=== PATIENT | male | born 1960 | race Caucasian/White ===

== ENCOUNTER 2017-10-08 16:57 | Inpatient (IN) | payer MEDICAID, SELFPAY ==
[2017-10-08] VITALS (12 sets, daily range): BP systolic 101–133; BP diastolic 70–94; PULSE 54–69; RESP 13–20; TEMP 36.4–36.8; O2SAT 94–100; BMI 27.1; BMI 27.6; BMI 28.4
--- NOTE | 2017-10-08 17:06 | RAD_ITS ---
STUDY: X-RAY CHEST REASON FOR EXAM: Male, 57 years old. Myocardial infarction. TECHNIQUE: Single AP portable view of the chest. COMPARISON: 04/23/2016. FINDINGS: Normal lung volumes. Mild infiltrate in the right lung base. No effusions. Normal size heart. Normal mediastinum and yumiko. Normal visualized pulmonary arteries. Normal visualized aortic arch and descending thoracic aorta. Normal visualized thoracic spine. Normal visualized ribs, clavicles, and shoulders. There is no demonstrated abnormality of the visualized soft tissue structures of the upper abdomen. RAD/Chest 1 View (Portable) IMPRESSION: Mild infiltrate in the right lung base. Electronically Signed: Sidney Ray MD at 18:17 EDT , Service support ,
--- NOTE | 2017-10-08 17:06 | EKG12_ITS ---
Test Reason : CP Blood Pressure : / mmHG Vent. Rate : 056 BPM Atrial Rate : 056 BPM P-R Int : 168 ms QRS Dur : 112 ms QT Int : 442 ms P-R-T Axes : 055 035 014 degrees QTc Int : 426 ms Sinus bradycardia with sinus arrhythmia Inferior infarct , age undetermined Abnormal ECG Confirmed by CHANA LACKEY, RICHIE ([id number]), scientific editor TONIE CUADRA ([id number]) on 10/11/2017 3:47:46 PM Referred By: Keshav Membreno Confirmed By:RICHIE ZAYAS MD
[2017-10-08] MEDS: Heparin Injection (Vial) 5,000 UNIT/ML VIAL 4000 UNIT IV (17:09)
[2017-10-08] MEDS: Aspirin 81 MG TAB.CHEW 324 MG PO (17:10)
[2017-10-08] MEDS: 0.9% Normal Saline 1,000 ML 250 ML IV (17:10)
--- NOTE | 2017-10-08 17:11 | ED.VISSUMM ---
- ER Visit Summary Date of Service: 10/08/17 Chief Complaint: Chest pain History of Present Illness: The patient is a 57 M [place]z to the emergency department with sudden onset chest pain. Patient is a history of coronary vascular disease. He had 3 stents placed just about 2 years ago. He states that he is no longer on Plavix. He has been in his normal state of health. Patient states he was actually waterskiing today. When he finished, he had sudden onset chest tightness. He felt as if he could not breathe. He got very diaphoretic and nauseated. He had pain radiating down his left arm. He states this feels exactly the same as when he had his prior [place]. He does follow with a county surveyor at [facility]. He states otherwise he has been in his normal state of health. His last heart catheterization was 2 years ago. The patient was actually on Effient. This was stopped 3 weeks ago so he could get a colonoscopy. He has not resumed it. Physical Examination: Vital signs reviewed General: Well-nourished, well-developed Head: Normocephalic, atraumatic Eyes: Pupils equal and reactive, extraocular muscles intact Neck, supple, no lymphadenopathy Heart: Regular rate and rhythm Respiratory: No distress, clear bilaterally Abdomen: Soft, nontender, nondistended, no peritoneal signs Back: Nontender Extremities: Nontender, no edema, no cords Skin: Normal color no rash Neuro: Alert and oriented, no focal or lateralizing deficits Test Results: [] Emergency Department Course and Treatment: EKG was obtained on patient arrival. The patient does appear to have about 1 mm of elevation in the inferior leads. He has old Q waves. There is some lateral depression. The patient states this feels exactly like when I had my other heart attack. Patient has allergy to Brilinta. He was given Plavix, heparin, and aspirin. I did discuss the patient with Dr. Danielle. The patient will be transferred immediately to the Patient Access Representative for intervention. Treatment Plan: [] Disposition: To Patient Access Representative Impression:. STEMI This note was generated with [employer] dictation software. It may contain incorrect words, spelling, and punctuation that were not noted in review of the chart prior to signing ED Disposition - Plan for ED Patient: Chief Complaint: Chest Pain Referrals: [facility] Doctor,Out of [Primary Care Provider] -
[2017-10-08 17:15] LABS: Absolute Lymphocyte Count 4.44 X10^3/ul (0.83-4.51); Basophil# 0.06 X10^3/uL; Basophil% 0.5 % (0-1); Eosinophils% 3.4 % (0-5); Hematocrit 41.1 % (40-54); Lymphocyte # 4.44 X10^3/ul (4.0); Lymphocyte % 37.9 % (19-41); Mean Corp Hgb Conc 34.1 g/gl (32-36); Mean Corpuscular Volume 93.8 fL (80-94); Mean Platelet Vol. 9.9 fl (6.2-12.0); Monocyte# 0.82 X10^3/uL; Neutrophil # 5.99 X10^3/uL (2.7-7.7); POSITIVE COUNT NO; POSITIVE DIFFERENTIAL NO; POSITIVE MORPHOLOGY NO; Platelet Count 342 K/mm3 (150-450); RBC Distribution Width CV 14.6 % (11.6-14.6); RBC Distribution Width SD 48.8 fl (35.1-43.9); Red Blood Count 4.38 M/mm3 (4.6-6.2); White Blood Count 11.7 K/mm3 (4.4-11.0)
[2017-10-08] MEDS: Morphine 4 MG/ML Syringe IV (17:20)
[2017-10-08] MEDS: Clopidogrel Bisulfate 300 MG Tablet PO (17:20)
[2017-10-08] MEDS: Ondansetron 4 MG/2 ML Vial IV (17:20)
[2017-10-08 17:24] LABS: Prothrombin Time (Protime)PT. 12.7 SECONDS (11.7-14.9)
[2017-10-08 17:25] LABS: Partial Thromboplast Time 32.6 Seconds (24.1-36.2)
[2017-10-08 17:31] LABS: Anion Gap 7 (5-15); BUN 23 mg/dL (7-18); BUN/Creat Ratio 15.9 RATIO (10-20); Chloride 107 mmol/L (98-107); Creatinine, Serum 1.45 mg/dL (0.70-1.30); EST Glomerular Filtration Rate 53 mL/min (>60); Est Glom Filt Rate - Afr Amer 64 mL/min (>60); Estimated Creatinine Clearance 60.95 ml/min; Glucose 181 mg/dL (74-106); Sodium Level 137 mmol/L (136-145)
[2017-10-08 18:51] LABS: ACT Activated Clotting Time 131 sec (74-137)
[2017-10-08 18:51] LABS: ACT Activated Clotting Time 252 sec (74-137)
[2017-10-08 18:51] LABS: ACT Activated Clotting Time 142 sec (74-137)
--- NOTE | 2017-10-08 18:55 | EKG12_ITS ---
Test Reason : STEMI Blood Pressure : / mmHG Vent. Rate : 063 BPM Atrial Rate : 063 BPM P-R Int : 172 ms QRS Dur : 108 ms QT Int : 418 ms P-R-T Axes : 058 037 009 degrees QTc Int : 427 ms Normal sinus rhythm Inferior infarct (cited on or before 23-APR-2016) Abnormal ECG When compared with ECG of 23-APR-2016 19:52, T wave inversion less evident in Inferior leads Confirmed by CHANA LACKEY, RICHIE ([id number]), editor managing newspaper TONIE CUADRA ([id number]) on 10/12/2017 10:43:31 AM Referred By: Keshav Membreno Confirmed By:RICHIE ZAYAS MD
--- NOTE | 2017-10-08 19:20 | NURSING ---
Pt arriving from builder's labourer to ICU. Pt appears without distress denies any chest pain discomfort stating I feel great. Right groin cath site free from complications, site soft to palpate, no bruising/ bleeding/ hematoma observed. Peripheral pulses present. Orientation to ICU provided.
[2017-10-08 20:08] LABS: Hematocrit 37.2 % (40-54); Hemoglobin 12.4 g/dl (13.0-16.5); Mean Corp Hgb Conc 33.3 g/gl (32-36); Mean Corpuscular Hgb 31.2 pg (27.0-32.0); Mean Corpuscular Volume 93.5 fL (80-94); Mean Platelet Vol. 9.6 fl (6.2-12.0); Platelet Count 278 K/mm3 (150-450); RBC Distribution Width CV 14.6 % (11.6-14.6); RBC Distribution Width SD 50.1 fl (35.1-43.9); Red Blood Count 3.98 M/mm3 (4.6-6.2); White Blood Count 12.3 K/mm3 (4.4-11.0)
[2017-10-08 20:13] LABS: Prothrombin Time (Protime)PT. 13.4 SECONDS (11.7-14.9)
[2017-10-08 20:14] LABS: Partial Thromboplast Time 45.7 Seconds (24.1-36.2)
[2017-10-08 20:21] LABS: Scan Indicated on CBC? Y/N NO
[2017-10-08 20:36] LABS: CPK Total, Creatine Kinase 179 U/L (39-308)
[2017-10-08 20:48] LABS: Anion Gap 6 (5-15); BUN 20 mg/dL (7-18); BUN/Creat Ratio 17.4 RATIO (10-20); Calcium,Total 8.1 mg/dL (8.5-10.1); Chloride 107 mmol/L (98-107); Creatinine, Serum 1.15 mg/dL (0.70-1.30); EST Glomerular Filtration Rate 69 mL/min (>60); Est Glom Filt Rate - Afr Amer 84 mL/min (>60); Estimated Creatinine Clearance 74.57 ml/min; Glucose 97 mg/dL (74-106); Sodium Level 138 mmol/L (136-145)
--- NOTE | 2017-10-08 20:54 | HP.PCM_ITS ---
Problem List (1) STEMI (ST elevation myocardial infarction) Status: Acute Qualifiers: Involved coronary artery: right coronary artery Qualified Code(s): I21.11 - ST elevation (STEMI) myocardial infarction involving right coronary artery (2) CAD (coronary artery disease) Status: Chronic Qualifiers: Coronary Disease-Associated Artery/Lesion type: [place] artery [place] vs. transplanted heart: [place] heart Associated angina: with unstable angina Qualified Code(s): I25.110 - Atherosclerotic heart disease of [place] coronary artery with unstable angina pectoris (3) HLD (hyperlipidemia) Status: Chronic Qualifiers: Hyperlipidemia type: unspecified Qualified Code(s): E78.5 - Hyperlipidemia , unspecified (4) S/P PTCA (percutaneous transluminal coronary angioplasty) Status: Chronic (5) STEMI (ST elevation myocardial infarction) Status: Acute History of Present Illness Date of Admission: 10/08/17 Chief Complaint: STEMI The patient is a 57 year old male w/ h/o CAD, [place], status post RCA PCI/stent, hyperlipidemia, admitted for STEMI s/o cath. Pt was waterskiing when he developed sudden onset severe chest pain. It was noted to be STEMI and he was immediately taken to cath labs. He had in stent thrombosis of the RCA and he underwent PTCA. His chest pain resolved by the time he was seen by me in the ICU after cath. He has no other complaint. Past Medical History Past Medical History (Chronic Problems): Chronic Problems CAD (coronary artery disease) (Chronic) S/P PTCA (percutaneous transluminal coronary angioplasty) (Chronic) HLD (hyperlipidemia) (Chronic) Allergies ticagrelor [From Brilinta] Allergy (Verified 10/08/17 17:26) Anaphylaxis Home Medications: Ambulatory Orders Medication Instructions Recorded Lisinopril [Zestril] 5 mg PO DAILY 12/26/15 Aspirin [Aspirin, Baby] 81 mg PO DAILY@0800 04/23/16 Atorvastatin Calcium [Lipitor] 40 mg PO QHS 04/23/16 Prasugrel Hydrochloride [Effient] 5 mg PO DAILY 04/23/16 Amlodipine 2.5 mg 10/08/17 Psychiatric History: No pertinent psych hx Lives: Spouse/ Significant Other Smoking Status: Never smoker Alcohol: None Drugs: None - *Family History Maternal History Items: No pertinent history Review of Systems Constitutional: Denies: Chills, Fever, Weight Change HEENT: Denies: Head Aches, Sinus Congestion, Sinus Drainage Cardiovascular: Denies: Chest Pain, Palpitations Respiratory: Denies: Cough, Shortness of breath at rest, Sputum production Gastrointestinal: Denies: Abdominal Pain, Nausea, Vomiting Genitourinary: Denies: Dysuria Musculoskeletal: Denies: Joint Pain, Joint Tenderness Skin: Denies: Rash, Wounds Neurological: Denies: Numbness, Tingling, Focal weakness Psychiatric: Denies: Anxiety, Depression, Homicidal Ideations, Suicidal Ideations Hematologic/ Lymphatic: Denies: Easy Bruising, Easy Bleeding VTE Information - Inpt Only VTE Present on Admission: No VTE Mechan Device Prophylaxis: SCD's VTE Pharm Prophylaxis ordered?: Yes Patient Problems: Active and Suspected Problems STEMI (ST elevation myocardial infarction) (Acute) STEMI (ST elevation myocardial infarction) (Acute) - Physical Exam General: Alert, Oriented x3, Cooperative HEENT: Atraumatic, PERRLA, EOMI, Normocephalic Neck: Supple, No JVD, Negative Carotid Bruits Lungs: Clear to auscultation, Normal air movement Cardiovascular: Regular rate, No murmurs Abdomen: Bowel Sounds Present, Soft, Non Tender Extremities: No edema, Capillary Refill Less than 3 Seconds Skin: No rashes, No breakdown Musculoskeletal: No Tenderness to Palpation of Joints or Extremities Neurological: Cranial nerves II-XII grossly intact Psych/Mental Status: Normal Affect, Appropriate Vital Signs Temp Pulse Resp BP Pulse Ox 97.5 F L 67 20 H 133/87 H 100 10/08/17 16:59 10/08/17 19:24 10/08/17 17:23 10/08/17 17:23 10/08/17 17:23 Weight: 92.4 kg Body Mass Index (BMI) 28.4 Laboratory Tests Past 24 Hrs 10/08/17 10/08/17 10/08/17 17:58 18:30 18:37 WBC RBC Hgb Hct MCV MCH MCHC RDW RDW Differential Plt Count MPV PT INR APTT Activated Clotting Time 252 H 131 142 H Sodium Potassium Chloride Carbon Dioxide Anion Gap BUN Creatinine Estim Creat Clear Calc Est GFR (MDRD) Af Amer Est GFR (MDRD) Non-Af BUN/Creatinine Ratio Glucose Calcium Total Creatine Kinase MRSA (PCR) 10/08/17 10/08/17 10/08/17 19:35 19:35 19:35 WBC 12.3 H RBC 3.98 L Hgb 12.4 L Hct 37.2 L MCV 93.5 MCH 31.2 MCHC 33.3 RDW 14.6 RDW Differential 50.1 H Plt Count 278 MPV 9.6 PT 13.4 INR 1.0 APTT 45.7 H Activated Clotting Time Sodium 138 Potassium 4.0 Chloride 107 Carbon Dioxide 25.0 Anion Gap 6 BUN 20 H Creatinine 1.15 Estim Creat Clear Calc 74.57 Est GFR (MDRD) Af Amer 84 Est GFR (MDRD) Non-Af 69 BUN/Creatinine Ratio 17.4 Glucose 97 Calcium 8.1 L Total Creatine Kinase MRSA (PCR) 10/08/17 10/08/17 19:35 19:40 WBC RBC Hgb Hct MCV MCH MCHC RDW RDW Differential Plt Count MPV PT INR APTT Activated Clotting Time Sodium Potassium Chloride Carbon Dioxide Anion Gap BUN Creatinine Estim Creat Clear Calc Est GFR (MDRD) Af Amer Est GFR (MDRD) Non-Af BUN/Creatinine Ratio Glucose Calcium Total Creatine Kinase 179 MRSA (PCR) Pending Assessment/Plan All Active Problems STEMI (ST elevation myocardial infarction) (Acute) STEMI (ST elevation myocardial infarction) (Acute) 57 year old male w/ h/o CAD, [place], status post RCA PCI/stent, hyperlipidemia, admitted for STEMI s/o cath. 1) Acute inferior STEMI: PTCA to in stent thrombosis of RCA. Cath went without complication. Spoke to cards. Resume integrilin, ASA, atorvastatin, lisinopril and metoprolol. 2) CAD: Resume meds. 3) HTN: SBP 120s. C/w meds. Monitor.
[2017-10-08 21:43] LABS: M R Staph aureus DNA By PCR Negative (Negative); Probe Check PASS; Specimen Processing Control PASS
[2017-10-08] MEDS: Zolpidem Tartrate 5 MG Tablet 10 MG PO (21:58)
[2017-10-08] MEDS: Atorvastatin Calcium 80 MG Tablet PO (21:58)
--- NOTE | 2017-10-08 22:30 | PCM.CONS.C ---
Problem List (1) STEMI (ST elevation myocardial infarction) Status: Acute Qualifiers: Involved coronary artery: right coronary artery Qualified Code(s): I21.11 - ST elevation (STEMI) myocardial infarction involving right coronary artery (2) CAD (coronary artery disease) Status: Chronic Qualifiers: Coronary Disease-Associated Artery/Lesion type: [place] artery [place] vs. transplanted heart: [place] heart Associated angina: with unstable angina Qualified Code(s): I25.110 - Atherosclerotic heart disease of [place] coronary artery with unstable angina pectoris (3) S/P PTCA (percutaneous transluminal coronary angioplasty) Status: Chronic (4) HLD (hyperlipidemia) Status: Chronic Qualifiers: Hyperlipidemia type: unspecified Qualified Code(s): E78.5 - Hyperlipidemia, unspecified Reason for Consult Date of Consultation: 10/08/17 History of Present Illness: The patient is a 57 year old white male with a past medical history of CAD, [place], status post RCA PCI/stent, hyperlipidemia, who presents for evaluation of symptoms concerning for unstable angina pectoris and subsequent findings of an acute inferior ST segment elevation MT now status post RCA PTCA (no stent). The patient states his original amounts occurred sometime ago when he was working in the [employer]. He was evaluated at 2 different hospitals and initially told that he had had an MT, had collateral flow, and did not require PCI. He notes after leaving the hospital he drove approximately 6 hours, was spending the night in a hotel room next to another hospital, had recurrent symptoms, was reassessed, and subsequently received PTCA/stent. He notes after returning to [place], and establishing care with the cardiovascular group in [place], [place], he had recurrent symptoms. He was once again evaluated and found to have issues with 1 of his stents and subsequently required repeat PTCA/stent. He states he participated in cardiac rehabilitation. He then exercised at an exercise facility for approximately a year. He states due to back related issues he has been unable to do so for the last few months. He had been taking medication. He states originally he was on Brilinta but could not tolerate it because skipped beats. He states he was also on metoprolol/Lopressor. He does not recall the dose. However he states he did not tolerated because he skipped beats. He notes he had been doing reasonably well until today. Today he was waterskiing. He had chest discomfort. He did not necessarily complain of acute dyspnea, nausea, emesis, or diaphoresis. However based on his concerns he presented to [facility] for further evaluation. On evaluation he was noted on ECG to have findings of sinus rhythm with an inferior MT pattern of indeterminate age with concerns of possible acute ST segment elevation-minimal. He was subsequently evaluated by Dr. Danielle of [facility]. He was taken to the cardiac catheterization laboratory for concerns of an acute inferior ST segment elevation MT. He was found to have an RCA that had been previously stented and was thrombosed. He subsequently underwent PTCA. He had good angiographic result and latter-day of flow through the RCA system. He was then placed in the ICU for further evaluation and care. At the present time he states he feels back to his normal self. He denies any ongoing chest discomfort or difficulty breathing. He has had no other nausea, emesis, or diaphoresis. There is been no report of loss of consciousness. He notes otherwise he has been relatively active without any other obvious symptoms or limits. [] Past Medical History Allergies/Adverse Reactions: Allergies metoprolol Allergy (Verified 10/08/17 21:44) Other ticagrelor [From Brilinta] Allergy (Verified 10/08/17 17:26) Anaphylaxis Home Medications: Ambulatory Orders Medication Instructions Recorded Lisinopril [Zestril] 5 mg PO DAILY 12/26/15 Aspirin [Aspirin, Baby] 81 mg PO DAILY@0800 04/23/16 Atorvastatin Calcium [Lipitor] 40 mg PO QHS 04/23/16 Prasugrel Hydrochloride [Effient] 5 mg PO DAILY 04/23/16 Amlodipine 2.5 mg 10/08/17 Past Medical History (Chronic Problems): Chronic Problems CAD (coronary artery disease) (Chronic) S/P PTCA (percutaneous transluminal coronary angioplasty) (Chronic) HLD (hyperlipidemia) (Chronic) Surgical History: angioplasty Smoking Status: Never smoker Alcohol: None Drugs: None Review of Systems - Review of Systems General: Denies: Fever, Night Sweats, Fatigue Cardiovascular: Reports: Chest Discomfort, Chest Discomfort at Rest, Chest Discomfort with Exertion. Denies: Shortness of Breath, Orthopnea, PND, Peripheral Edema, Palpitations, Lightheadedness, Dizziness, Near Syncope, Syncope Respiratory: Denies: Cough, Sputum Production, Hemoptysis Gastrointestinal: Denies: Hematemesis, Hematochezia, Melena Genitourinary: Denies: Dysuria, Hematuria Skin: Denies: Rash Subjectve: This is a 57-year-old white male who appears to be resting comfortably at the moment in no acute distress. Objective: Vital Signs Temp Pulse Resp BP Pulse Ox 97.5 F L 67 20 H 133/87 H 100 10/08/17 16:59 10/08/17 19:24 10/08/17 17:23 10/08/17 17:23 10/08/17 17:23 Weight: 203 lb 11.314 oz Body Mass Index (BMI) 28.4 General: Awake, Alert, Oriented x 3, Cooperative, No Acute Distress HEENT: Atraumatic, Normocephalic, PERRL, EOMI, Sclera Non Icteric Oral: Moist Mucosa Neck: Supple, Good ROM, No JVD Lungs: Clear to auscultation Cardiovascular: Regular Rhythm, Normal S1, Normal S2, Positive S4 Vascular: No Carotid Bruits, Normal Femoral Pulses Abdomen: Bowel Sounds Present, Soft, Non Tender Extremities: No Cyanosis, No Clubbing, No edema Neurological: No Focal Motor or Sensory Deficit Psych/Mental Status: Appropriate, Normal Affect 10/08/17 19:35: PT 13.4, INR 1.0, APTT 45.7 H 10/08/17 19:35: Sodium 138, Potassium 4.0, Chloride 107, Carbon Dioxide 25.0, Anion Gap 6, BUN 20 H, Creatinine 1.15, Est GFR (MDRD) Af Amer 84, Est GFR (MDRD) Non-Af 69, BUN/Creatinine Ratio 17.4, Glucose 97, Calcium 8.1 L 10/08/17 19:35: WBC 12.3 H, RBC 3.98 L, Hgb 12.4 L, Hct 37.2 L, MCV 93.5, MCH 31.2, MCHC 33.3, RDW 14.6, RDW Differential 50.1 H, Plt Count 278, MPV 9.6 Rhythm: Sinus rhythm EKG: As noted above Cardiac Cath: Please see official report PCI: Please see official report CXR: Preliminary evaluation: question of a right sided infiltrate: Please see official report Assessment/Plan 1. Acute inferior ST segment elevation MT The patient presents with signs and symptoms and objective findings compatible with an acute inferior ST segment elevation MT. He has subsequently undergone emergent/urgent diagnostic cardiac catheterization demonstrating RCA PTCA/stent occlusion/thrombosis and is now status post recurrent RCA PTCA-no stent. He appears to be resting comfortably at the moment in the ICU. At the present time he will continue to be monitored. His laboratory studies and ECGs are being followed. He can have a follow-up echocardiogram to assess his left ventricular wall motion and systolic function. He will continue medical therapy. This will include aspirin and antiplatelet therapy. He has been placed on clopidogrel/Plavix. Nitrates can be used cautiously as needed. It would not be unreasonable to reattempt beta-shannon therapy and a low dose to assist with his cardiovascular care. He is on an ASHANTI inhibitor. He is on a lipid-lowering agent. He will need to follow-up with his primary instructional technology coordinator in [place], [place]. He should be considered for recurrent cardiac rehabilitation. 2. CAD status post RCA PTCA/stent He does have a history of previous coronary artery disease and RCA PTCA/stent as noted above. Again he will need to continue risk factor modification and medical management. He will need to continue to follow with his primary instructional technology coordinator and be considered for recurrent outpatient cardiac rehabilitation. 3. Hyperlipidemia He will need to continue aggressive risk factor modification and medical management. Comment: The above was discussed and reviewed with the patient. This note was generated with [employer] ([employer]ation software. It may contain incorrect words, spelling, and punctuation that were not noted in checking the note before signing.
--- NOTE | 2017-10-08 22:41 | CON.PCM_ITS ---
Problem List (1) STEMI (ST elevation myocardial infarction) Status: Acute Qualifiers: Involved coronary artery: right coronary artery Qualified Code(s): I21.11 - ST elevation (STEMI) myocardial infarction involving right coronary artery (2) CAD (coronary artery disease) Status: Chronic Qualifiers: Coronary Disease-Associated Artery/Lesion type: [place] artery [place] vs. transplanted heart: [place] heart Associated angina: with unstable angina Qualified Code(s): I25.110 - Atherosclerotic heart disease of [place] coronary artery with unstable angina pectoris (3) S/P PTCA (percutaneous transluminal coronary angioplasty) Status: Chronic (4) HLD (hyperlipidemia) Status: Chronic Qualifiers: Hyperlipidemia type: unspecified Qualified Code(s): E78.5 - Hyperlipidemia , unspecified Reason for Consult Date of Consultation: 10/08/17 History of Present Illness: The patient is a 57 year old white male with a past medical history of CAD, TN, status post RCA PCI/stent, hyperlipidemia, who presents for evaluation of symptoms concerning for unstable angina pectoris and subsequent findings of an acute inferior ST segment elevation TN now status post RCA PTCA (no stent). The patient states his original amounts occurred sometime ago when he was working in the [employer]. He was evaluated at 2 different hospitals and initially told that he had had an TN, had collateral flow, and did not require PCI. He notes after leaving the hospital he drove approximately 6 hours , was spending the night in a hotel room next to another hospital, had recurrent symptoms, was reassessed, and subsequently received PTCA/stent. He notes after returning to [place], and establishing care with the cardiovascular group in [place], [place], he had recurrent symptoms. He was once again evaluated and found to have issues with 1 of his stents and subsequently required repeat PTCA/stent. He states he participated in cardiac rehabilitation. He then exercised at an exercise facility for approximately a year. He states due to back related issues he has been unable to do so for the last few months. He had been taking medication. He states originally he was on Brilinta but could not tolerate it because skipped beats. He states he was also on metoprolol/ Lopressor. He does not recall the dose. However he states he did not tolerated because he skipped beats. He notes he had been doing reasonably well until today. Today he was waterskiing. He had chest discomfort. He did not necessarily complain of acute dyspnea, nausea, emesis, or diaphoresis. However based on his concerns he presented to [facility] for [facility] evaluation. On evaluation he was noted on ECG to have findings of sinus rhythm with an inferior TN pattern of indeterminate age with concerns of possible acute ST segment elevation-minimal. He was subsequently evaluated by Dr. Danielle of [facility]. He was taken to the cardiac catheterization laboratory for concerns of an acute inferior ST segment elevation TN. He was found to have an RCA that had been previously stented and was thrombosed. He subsequently underwent PTCA. He had good angiographic result and orthodoxy of flow through the RCA system. He was then placed in the ICU for further evaluation and care. At the present time he states he feels back to his normal self. He denies any ongoing chest discomfort or difficulty breathing. He has had no other nausea, emesis, or diaphoresis. There is been no report of loss of consciousness. He notes otherwise he has been relatively active without any other obvious symptoms or limits. [] Past Medical History Allergies/Adverse Reactions: Allergies metoprolol Allergy (Verified 10/08/17 21:44) Other ticagrelor [From Brilinta] Allergy (Verified 10/08/17 17:26) Anaphylaxis Home Medications: Ambulatory Orders Medication Instructions Recorded Lisinopril [Zestril] 5 mg PO DAILY 12/26/15 Aspirin [Aspirin, Baby] 81 mg PO DAILY@0800 04/23/16 Atorvastatin Calcium [Lipitor] 40 mg PO QHS 04/23/16 Prasugrel Hydrochloride [Effient] 5 mg PO DAILY 04/23/16 Amlodipine 2.5 mg 10/08/17 Past Medical History (Chronic Problems): Chronic Problems CAD (coronary artery disease) (Chronic) S/P PTCA (percutaneous transluminal coronary angioplasty) (Chronic) HLD (hyperlipidemia) (Chronic) Surgical History: angioplasty Smoking Status: Never smoker Alcohol: None Drugs: None Review of Systems - Review of Systems General: Denies: Fever, Night Sweats, Fatigue Cardiovascular: Reports: Chest Discomfort, Chest Discomfort at Rest, Chest Discomfort with Exertion. Denies: Shortness of Breath, Orthopnea, PND, Peripheral Edema, Palpitations, Lightheadedness, Dizziness, Near Syncope, Syncope Respiratory: Denies: Cough, Sputum Production, Hemoptysis Gastrointestinal: Denies: Hematemesis, Hematochezia, Melena Genitourinary: Denies: Dysuria, Hematuria Skin: Denies: Rash Subjectve: This is a 57-year-old white male who appears to be resting comfortably at the moment in no acute distress. Objective: Vital Signs Temp Pulse Resp BP Pulse Ox 97.5 F L 67 20 H 133/87 H 100 10/08/17 16:59 10/08/17 19:24 10/08/17 17:23 10/08/17 17:23 10/08/17 17:23 Weight: 203 lb 11.314 oz Body Mass Index (BMI) 28.4 General: Awake, Alert, Oriented x 3, Cooperative, No Acute Distress HEENT: Atraumatic, Normocephalic, PERRL, EOMI, Sclera Non Icteric Oral: Moist Mucosa Neck: Supple, Good ROM, No JVD Lungs: Clear to auscultation Cardiovascular: Regular Rhythm, Normal S1, Normal S2, Positive S4 Vascular: No Carotid Bruits, Normal Femoral Pulses Abdomen: Bowel Sounds Present, Soft, Non Tender Extremities: No Cyanosis, No Clubbing, No edema Neurological: No Focal Motor or Sensory Deficit Psych/Mental Status: Appropriate, Normal Affect 10/08/17 19:35: PT 13.4, INR 1.0, APTT 45.7 H 10/08/17 19:35: Sodium 138, Potassium 4.0, Chloride 107, Carbon Dioxide 25.0, Anion Gap 6, BUN 20 H, Creatinine 1.15, Est GFR (MDRD) Af Amer 84, Est GFR (MDRD ) Non-Af 69, BUN/Creatinine Ratio 17.4, Glucose 97, Calcium 8.1 L 10/08/17 19:35: WBC 12.3 H, RBC 3.98 L, Hgb 12.4 L, Hct 37.2 L, MCV 93.5, MCH 31.2, MCHC 33.3, RDW 14.6, RDW Differential 50.1 H, Plt Count 278, MPV 9.6 Rhythm: Sinus rhythm EKG: As noted above Cardiac Cath: Please see official report PCI: Please see official report CXR: Preliminary evaluation: question of a right sided infiltrate: Please see official report Assessment/Plan 1. Acute inferior ST segment elevation TN The patient presents with signs and symptoms and objective findings compatible with an acute inferior ST segment elevation TN. He has subsequently undergone emergent/urgent diagnostic cardiac catheterization demonstrating RCA PTCA/stent occlusion/thrombosis and is now status post recurrent RCA PTCA-no stent. He appears to be resting comfortably at the moment in the ICU. At the present time he will continue to be monitored. His laboratory studies and ECGs are being followed. He can have a follow-up echocardiogram to assess his left ventricular wall motion and systolic function. He will continue medical therapy. This will include aspirin and antiplatelet therapy. He has been placed on clopidogrel/Plavix. Nitrates can be used cautiously as needed. It would not be unreasonable to reattempt beta-shannon therapy and a low dose to assist with his cardiovascular care. He is on an ASHANTI inhibitor. He is on a lipid-lowering agent. He will need to follow-up with his primary airplane and engine inspector in [place], [place]. He should be considered for recurrent cardiac rehabilitation. 2. CAD status post RCA PTCA/stent He does have a history of previous coronary artery disease and RCA PTCA/stent as noted above. Again he will need to continue risk factor modification and medical management. He will need to continue to follow with his primary airplane and engine inspector and be considered for recurrent outpatient cardiac rehabilitation. 3. Hyperlipidemia He will need to continue aggressive risk factor modification and medical management. Comment: The above was discussed and reviewed with the patient. This note was generated with [employer] software. It may contain incorrect words, spelling, and punctuation that were not noted in checking the note before signing.
[2017-10-09] VITALS (22 sets, daily range): BP systolic 97–145; BP diastolic 57–108; PULSE 48–83; RESP 12–20; TEMP 36.6–36.9; O2SAT 95–100; BMI 27.5
[2017-10-09 01:14] LABS: CPK Total, Creatine Kinase 216 U/L (39-308)
[2017-10-09] MEDS: 0.9% Normal Saline 1,000 ML 75 ML IV (03:16)
[2017-10-09 05:40] LABS: Absolute Lymphocyte Count 1.96 X10^3/ul (0.83-4.51); Absolute Neutrophil Count 6.3 X10^3/uL (2.0-7.7); Basophil# 0.03 X10^3/uL; Basophil% 0.3 % (0-1); Eosinophil# 0.43 X10^3/uL; Eosinophils% 4.4 % (0-5); Hematocrit 37.6 % (40-54); Hemoglobin 12.6 g/dl (13.0-16.5); Lymphocyte # 1.96 X10^3/ul (4.0); Lymphocyte % 20.1 % (19-41); Mean Corp Hgb Conc 33.5 g/gl (32-36); Mean Corpuscular Hgb 31.9 pg (27.0-32.0); Mean Corpuscular Volume 95.2 fL (80-94); Mean Platelet Vol. 9.6 fl (6.2-12.0); Monocyte# 1.03 X10^3/uL; Monocyte% 10.5 % (0-10); Neutrophil # 6.31 X10^3/uL (2.7-7.7); Neutrophil % 64.6 % (47-70); Platelet Count 293 K/mm3 (150-450); RBC Distribution Width CV 14.7 % (11.6-14.6); RBC Distribution Width SD 50.2 fl (35.1-43.9); Red Blood Count 3.95 M/mm3 (4.6-6.2); White Blood Count 9.8 K/mm3 (4.4-11.0)
--- NOTE | 2017-10-09 05:55 | ECHOD_ITS ---
Reason For Study: S/P GA Procedure This was a 2D Doppler, Color Flow transthoracic echocardiogram. The exam was of adequate technical quality. Exam performed portable in ICU/CCU. Left Ventricle Normal LV size. Mild segmental systolic dysfunction (see wall motion). The estimated ejection fraction is 50 %. Transmitral doppler flow suggestive of impaired relaxation of left ventricle. Infero-Basal: Hypokinetic. Mid-Lateral : Hypokinetic. Mid-Posterior: Hypokinetic. Mid-Inferior: Hypokinetic. Right Ventricle Normal RV size. Normal systolic function. Atria Normal left atrium. Normal right atrium. No doppler evidence for ASD. Mitral Valve There is no mitral annular calcification. Normal mitral valve. Trivial mitral valve insufficiency. Tricuspid Valve Normal tricuspid valve. Trivial tricuspid valve insufficiency. Aortic Valve Trisinus/trileaflet aortic valve. Normal aortic valve. Pulmonic Valve The pulmonic valve is not well visualized. Trivial pulmonic valve insufficiency. Great Vessels Normal sized aortic root. Pericardium/Pleural No pericardial effusion. MMode/2D Measurements & Calculations LVIDd: 4.8 cm IVSd: 1.1 cm Ao root diam: 4.4 cm LVIDs: 3.6 cm LVPWd: 1.3 cm LA dimension: 3.2 cm FS: 24.3 % LAV(MOD-bp): 38.1 ml LVAd ap4: 35.0 cm2 SV(MOD-sp4): 62.0 ml LAV(MOD-bp) Indexed: 18.1 ml/m2 EDV(MOD-sp4): 115.7 ml LAV(MOD-sp2): 35.6 ml EDV(sp4-el): 113.0 ml LAV(MOD-sp4): 36.9 ml LVAs ap4: 22.1 cm2 ESV(MOD-sp4): 53.6 ml ESV(sp4-el): 51.0 ml EF(MOD-sp4): 53.6 % EF(sp4-el): 54.8 % SV(sp4-el): 62.0 ml LA A4 area: 14.8 cm2 RA A4 area: 12.7 cm2 Time Measurements MV dec time: 0.24 sec Doppler Measurements & Calculations MV E max julio: 75.9 cm/sec Lat Peak E' Julio: 9.8 cm/sec Med Peak E' Julio: 9.3 cm/sec MV A max julio: 90.2 cm/sec E/E' lat: 7.7 E/E' med: 8.2 MV E/A: 0.84 MV V2 max: 89.5 cm/sec MV P1/2t max julio: 89.5 cm/sec Ao V2 max: 125.7 cm/sec MV max P.2 mmHg MV P1/2t: 69.3 msec Ao max P.3 mmHg MV V2 mean: 46.8 cm/sec MV dec slope: 378.1 cm/sec2 Ao V2 mean: 87.8 cm/sec MV mean P.1 mmHg MVA(P1/2t): 3.2 cm2 Ao mean P.4 mmHg MV V2 VTI: 31.2 cm Ao V2 VTI: 27.4 cm LV V1 max: 97.8 cm/sec PA V2 max: 80.9 cm/sec LV V1 max P.8 mmHg LV V1 mean P.1 mmHg LV V1 mean: 68.6 cm/sec LV V1 VTI: 20.7 cm Interpretation Summary Mild segmental systolic dysfunction (see wall motion). The estimated ejection fraction is 50 %. Trivial mitral valve insufficiency. Trivial tricuspid valve insufficiency. Trivial pulmonic valve insufficiency. Transmitral doppler flow suggestive of impaired relaxation of left ventricle Ordering Physician: SUDHEER LACEY Performed By: Cruz Gilman, [facility]
[2017-10-09 06:01] LABS: Anion Gap 6 (5-15); BUN 15 mg/dL (7-18); BUN/Creat Ratio 15.6 RATIO (10-20); Chloride 111 mmol/L (98-107); Cholesterol 113 mg/dL (200); Creatinine, Serum 0.96 mg/dL (0.70-1.30); EST Glomerular Filtration Rate 85 mL/min (>60); Est Glom Filt Rate - Afr Amer 103 mL/min (>60); Estimated Creatinine Clearance 89.33 ml/min; Glucose 98 mg/dL (74-106); High Density Lipoprotein 44 mg/dL; Potassium 4.2 mmol/L (3.5-5.1); Sodium Level 143 mmol/L (136-145); Triglycerides 54 mg/dL; Very Low Density Lipoprotein 11 mg/dL (5-40)
[2017-10-09 06:25] LABS: POSITIVE COUNT NO; POSITIVE DIFFERENTIAL NO; POSITIVE MORPHOLOGY NO
[2017-10-09 06:53] LABS: CPK Total, Creatine Kinase 255 U/L (39-308)
--- NOTE | 2017-10-09 07:22 | PN_ITS ---
Patient Problems: Active and Suspected Problems STEMI (ST elevation myocardial infarction) (Acute) STEMI (ST elevation myocardial infarction) (Acute) Subjective: Patient is a 57-year-old gentleman with history of CAD with previous MN status post RCA PCI stent who presented with chest pain and assessment of acute inferior ST segment elevation MN was made patient underwent emergency left catheterization with PTCA of his RCA he had no stent placed subsequently transferred to the intensive care unit where patient has since been managed Objective: GENERAL: cooperative HEENT: neck is supple, normal thyroid, no distended JVD. CHEST: Clear to auscultation bilaterally, HEART: Regular S1 S2, PMI non-displaced. ABDOMEN: soft, non-tender, normoactive bowel sounds, RECTAL: deferred MUSCULOSKELETAL: Full range of motion in all major muscle groups. EXTREMITIES: No edema, no clubbing, no cyanosis. CONTROL ANALYST: Awake, alert and oriented to time, place and person, upper and lower strength 5/5. SKIN: No rash, no erythema, Vitals/I&O's: Vital Signs Temp Pulse Resp BP Pulse Ox 98.5 F 68 17 133/88 H 96 10/09/17 05:00 10/09/17 07:00 10/09/17 07:00 10/09/17 07:00 10/09/17 07:00 Oxygen Delivery Method Room Air Weight: 90.7 kg Body Mass Index (BMI) 28.4 Intake and Output for Last 24 Hours 10/07/17 10/08/17 10/09/17 23:59 23:59 23:59 Intake Total 598 / 598 689 / 689 Output Total 675 / 675 750 / 750 Balance -77 / -77 -61 / -61 Laboratory Results 10/08/17 17:58: Activated Clotting Time 252 H 10/08/17 18:30: Activated Clotting Time 131 10/08/17 18:37: Activated Clotting Time 142 H 10/08/17 19:35: PT 13.4, INR 1.0, APTT 45.7 H 10/08/17 19:35: Sodium 138, Potassium 4.0, Chloride 107, Carbon Dioxide 25.0, Anion Gap 6, BUN 20 H, Creatinine 1.15, Estim Creat Clear Calc 74.57, Est GFR ( MDRD) Af Amer 84, Est GFR (MDRD) Non-Af 69, BUN/Creatinine Ratio 17.4, Glucose 97, Calcium 8.1 L 10/08/17 19:35: WBC 12.3 H, RBC 3.98 L, Hgb 12.4 L, Hct 37.2 L, MCV 93.5, MCH 31.2, MCHC 33.3, RDW 14.6, RDW Differential 50.1 H, Plt Count 278, MPV 9.6 10/08/17 19:35: Total Creatine Kinase 179 10/08/17 19:40: MRSA (PCR) Negative 10/09/17 00:52: Total Creatine Kinase 216 10/09/17 05:10: WBC 9.8, RBC 3.95 L, Hgb 12.6 L, Hct 37.6 L, MCV 95.2 H, MCH 31.9, MCHC 33.5, RDW 14.7 H, RDW Differential 50.2 H, Plt Count 293, MPV 9.6, Immature Gran % (Auto) 0.100, Neut % (Auto) 64.6, Lymph % (Auto) 20.1, Pepin % ( Auto) 10.5 H, Eos % (Auto) 4.4, Baso % (Auto) 0.3, Absolute Neuts (auto) 6.3, Absolute Lymphs (auto) 1.96, Total Counted Not Reportable 10/09/17 05:10: Sodium 143, Potassium 4.2, Chloride 111 H, Carbon Dioxide 26.0, Anion Gap 6, BUN 15, Creatinine 0.96, Estim Creat Clear Calc 89.33, Est GFR ( MDRD) Af Amer 103, Est GFR (MDRD) Non-Af 85, BUN/Creatinine Ratio 15.6, Glucose 98, Calcium 8.0 L, Troponin I 2.890 H*, Triglycerides 54, Cholesterol 113, LDL Cholesterol 58, VLDL Cholesterol 11, HDL Cholesterol 44 10/09/17 06:26: Total Creatine Kinase 255 Current Medications Aspirin (Aspirin, Baby) 81 mg PO DAILY@0800 [facility] Atorvastatin Calcium (Lipitor) 80 mg PO QHS [facility] Last Admin: 10/08/17 21:58 Dose: 80 mg Atropine Sulfate () 0.5 mg IV UD PRN PRN Reason: HR <50 bpm Clopidogrel Bisulfate (Plavix) 75 mg PO X1 ONE Stop: 10/08/17 18:59 Sodium Chloride () 1,000 mls @ 75 mls/hr IV .[id number] LORIE Stop: 10/09/17 21:01 Last Admin: 10/09/17 03:16 Dose: 75 mls/hr Sodium Chloride () 250 mls @ 15 mls/hr IV .[id number] PRN PRN Reason: SALINE FLUSH Lisinopril (Zestril) 5 mg PO DAILY LORIE Magnesium Hydroxide (Milk Of Magnesia) 30 ml PO DAILY PRN PRN PRN Reason: Constipation Metoprolol Tartrate (Lopressor (Beta Hung)) 12.5 mg PO BID LORIE Morphine Sulfate () 2 - 4 mg IV Q4H PRN PRN PRN Reason: BACK PAIN Morphine Sulfate () 2 - 4 mg IV Q4H PRN PRN PRN Reason: BACK PAIN Sodium Chloride () 5 - 30 ml IV UD PRN PRN Reason: SALINE FLUSH Medical Necessity - Tobacco Use Smoking Status: Never smoker Assessment/Plan All Active Problems STEMI (ST elevation myocardial infarction) (Acute) STEMI (ST elevation myocardial infarction) (Acute) Patient is a 57-year-old gentleman with history of CAD with previous MN status post RCA PCI stent who presented with chest pain and assessment of acute inferior ST segment elevation MN was made patient underwent emergency left catheterization with PTCA of his RCA he had no stent placed subsequently transferred to the intensive care unit where patient has since been managed 1. Acute inferior ST segment elevation MN; patient underwent emergency left catheterization on 10/08/2017 with PTCA of his RCA he had no stent placed subsequently transferred to the intensive care unit where patient has since been managed 2. CAD with previous stent placement 3. Hypertension-blood pressure controlled, home medications continued with dose adjustment as needed 4. Dyslipidemia-patient is on statin therapy, continued at home dose Code Visit Inpatient E&M: [id number] [place] [id number]
--- NOTE | 2017-10-09 08:40 | CRPHASE1 ---
Patient Data/Charges PCP:: Chaitanya Rodriguez Refer Phase II:: Yes Phase II Referral:: [facility] Start Phase II:: after follow up visit with Color Sprayer Phase I Charge:: Level I - Education Risk Factors/Lifestyle Smoking Status: Former smoker Hx Hypertension: Yes Hx Diabetes Mellitus Type 1: No Hx Diabetes Mellitus Type 2: No Hx Dyslipidemia: Yes Hx Obesity: Yes Height: 1.83 m Weight:: 92.079 kg BMI: 27.5 ETOH: Yes Risk Factor for Sedentary Lifestyle: Moderate Risk Family History: Heart Disease Past Cardiac Illness: Coronary Artery Disease, Previous PCI w/Stent Laboratory Values: Cardiac Rehab Phase I Labs Triglycerides 54 mg/dL (-199) 10/09/17 05:10 Cholesterol 113 mg/dL (200) 10/09/17 05:10 LDL Cholesterol 58 mg/dL (0-130) 10/09/17 05:10 HDL Cholesterol 44 mg/dL (40-) 10/09/17 05:10 Phase I Education Given On:: [place], Nutrition, Antiplatelet medication, CHF Issues Affecting Care:: None Knowledge of Condition:: Yes Learning Preferences: Verbal, Written, Audio/Visual, Demonstration Medical/Surgical History [place]:: Yes - STEMI Angina:: Yes CAD:: Yes Hypertension:: Yes Dyslipidemia:: Yes PTCA:: Yes
--- NOTE | 2017-10-09 08:47 | CRPHASE1_ITS ---
Patient Data/Charges PCP:: Chaitanya Rodriguez Refer Phase II:: Yes Phase II Referral:: [facility] Start Phase II:: after follow up visit with Veterinary Attendant Phase I Charge:: Level I - Education Risk Factors/Lifestyle Smoking Status: Former smoker Hx Hypertension: Yes Hx Diabetes Mellitus Type 1: No Hx Diabetes Mellitus Type 2: No Hx Dyslipidemia: Yes Hx Obesity: Yes Height: 1.83 m Weight:: 92.079 kg BMI: 27.5 ETOH: Yes Risk Factor for Sedentary Lifestyle: Moderate Risk Family History: Heart Disease Past Cardiac Illness: Coronary Artery Disease, Previous PCI w/Stent Laboratory Values: Cardiac Rehab Phase I Labs Triglycerides 54 mg/dL (-199) 10/09/17 05:10 Cholesterol 113 mg/dL (200) 10/09/17 05:10 LDL Cholesterol 58 mg/dL (0-130) 10/09/17 05:10 HDL Cholesterol 44 mg/dL (40-) 10/09/17 05:10 Phase I Education Given On:: [place], Nutrition, Antiplatelet medication, CHF Issues Affecting Care:: None Knowledge of Condition:: Yes Learning Preferences: Verbal, Written, Audio/Visual, Demonstration Medical/Surgical History [place]:: Yes - STEMI Angina:: Yes CAD:: Yes Hypertension:: Yes Dyslipidemia:: Yes PTCA:: Yes
[2017-10-09] MEDS: Metoprolol Tartrate 25 MG Tablet 12.5 MG PO (08:48)
[2017-10-09] MEDS: Lisinopril 5 MG Tablet PO (08:48)
[2017-10-09] MEDS: Aspirin 81 MG TAB.CHEW PO (08:48)
--- NOTE | 2017-10-09 08:49 | CRPH1.INST_ITS ---
General Education CAD and cardiac anatomy and function:: Patient communicates acknowledgment, Needs reinforcement Explanation of diagnoses and procedures:: Patient communicates acknowledgment, Needs reinforcement Sign/Symptoms of VT:: Patient communicates acknowledgment, Needs reinforcement Antiplatelet therapy: Patient communicates acknowledgment, Needs reinforcement Proper use of NTG-SL: Patient communicates acknowledgment, Needs reinforcement Emergency procedures and activation of EMS: Patient communicates acknowledgment , Needs reinforcement Compliance of all prescribed medications: Patient communicates acknowledgment, Needs reinforcement Smoking Patient Nicotine/Smoking Risk Factors Are:: Non-smoker Recommendations Include:: Previous smoker; encourage continued cessation Nicotine/Smoking Response Code:: Patient communicates acknowledgment, Patient returns demonstration Dyslipidemia Patient Dyslipidemia Risk Factors Are:: Total Cholesterol, Triglycerides, HDL, LDL Recommendations Include:: Lipid profile provided, Reviewed NCEP/ATP guidelines, Therapeutic Lifestyle Change dietary guidelines Dyslipidemia Response Code:: Patient communicates acknowledgment, Needs reinforcement Overweight/Obesity Patient Overweight/Obesity Risk Factors Are:: Overweight = 26-29 Recommendations Include:: Weight loss of 5-10%, Reduced calorie diet, Exercise 5 -7 times/week Overweight/Obesity:: Patient communicates acknowledgment, Needs reinforcement Hypertension Recommendations Include:: Maintain BP <130/85, DASH dietary guidelines, Decrease /maintain normal body weight, Moderation of ETOH Hypertension:: Patient communicates acknowledgment, Needs reinforcement Heart Disease Patient Heart Disease Risk Factors Are:: Family history of heart disease < 65 years old, Previous cardiac event Recommendations Include:: Educated family members of their risk, Educated family members of importance of prevention of heart disease Heart Disease Response Code:: Patient communicates acknowledgment, Needs reinforcement Diabetes Patient Diabetes Risk Factors Are:: No documented hx of diabetes Diabetes:: Not instructed Metabolic Syndrome Metabolic Syndrome Response Code:: Not instructed Sedentary Patient Sedentary Risk Factors Are:: Lack of regular exercise Recommendations Include:: Aerobic exercise 5-7 times/week for 20-30 minutes continuously, Benefits of regular exercise, Discussed home walking program, Monitored Outpatient Cardiac Rehab Sedentary Response Code:: Patient communicates acknowledgment, Needs reinforcement Stress Patient Stress Risk Factors Are:: Patient denies stress as a risk factor Stress Response Code:: Patient communicates acknowledgment, Not instructed
--- NOTE | 2017-10-09 09:04 | CASEMGMT ---
DC PLAN: Home on discharge. no dc needs identified. Ladan BSN RN ACM
--- NOTE | 2017-10-09 10:06 | NURSING ---
Dr. Weber at bedside after blood pressure at 0800 aware of high diastolic, instructed RN to give AM meds early
--- NOTE | 2017-10-09 12:14 | PCM.PN.CARD ---
Subjectve: The patient is awake and alert. He has no new acute complaints this a.m. Objective: Vital Signs Temp Pulse Resp BP Pulse Ox 98 F 78 13 138/97 H 99 10/09/17 12:00 10/09/17 12:00 10/09/17 12:00 10/09/17 12:00 10/09/17 12:00 Oxygen Delivery Method Room Air Weight: 203 lb Body Mass Index (BMI) 28.4 Intake and Output for Last 24 Hours 10/07/17 10/08/17 10/09/17 23:59 23:59 23:59 Intake Total 598 / 598 1209 / 1209 Output Total 675 / 675 1100 / 1100 Balance -77 / -77 109 / 109 General: Awake, Alert, Oriented x 3, Cooperative, No Acute Distress HEENT: Atraumatic, Normocephalic, PERRL, EOMI, Sclera Non Icteric Neck: Supple, Good ROM, No JVD Lungs: Clear to auscultation Cardiovascular: Regular Rhythm, Normal S1, Normal S2 Vascular: No Carotid Bruits Abdomen: Bowel Sounds Present, Soft, Non Tender Extremities: No Cyanosis, No Clubbing, No edema Neurological: No Focal Motor or Sensory Deficit Psych/Mental Status: Appropriate, Normal Affect 10/08/17 19:35: PT 13.4, INR 1.0, APTT 45.7 H 10/08/17 19:35: Sodium 138, Potassium 4.0, Chloride 107, Carbon Dioxide 25.0, Anion Gap 6, BUN 20 H, Creatinine 1.15, Est GFR (MDRD) Af Amer 84, Est GFR (MDRD) Non-Af 69, BUN/Creatinine Ratio 17.4, Glucose 97, Calcium 8.1 L 10/08/17 19:35: WBC 12.3 H, RBC 3.98 L, Hgb 12.4 L, Hct 37.2 L, MCV 93.5, MCH 31.2, MCHC 33.3, RDW 14.6, RDW Differential 50.1 H, Plt Count 278, MPV 9.6 10/09/17 05:10: WBC 9.8, RBC 3.95 L, Hgb 12.6 L, Hct 37.6 L, MCV 95.2 H, MCH 31.9, MCHC 33.5, RDW 14.7 H, RDW Differential 50.2 H, Plt Count 293, MPV 9.6, Immature Gran % (Auto) 0.100, Neut % (Auto) 64.6, Lymph % (Auto) 20.1, Zavala % (Auto) 10.5 H, Eos % (Auto) 4.4, Baso % (Auto) 0.3, Absolute Neuts (auto) 6.3, Total Counted Not Reportable 10/09/17 05:10: Sodium 143, Potassium 4.2, Chloride 111 H, Carbon Dioxide 26.0, Anion Gap 6, BUN 15, Creatinine 0.96, Est GFR (MDRD) Af Amer 103, Est GFR (MDRD) Non-Af 85, BUN/Creatinine Ratio 15.6, Glucose 98, Calcium 8.0 L, Troponin I 2.890 H*, Triglycerides 54, Cholesterol 113, LDL Cholesterol 58, VLDL Cholesterol 11, HDL Cholesterol 44 10/09/17 09:45: Troponin I 2.650 H* Rhythm: Sinus rhythm/sinus bradycardia EKG: Sinus rhythm; inferior OK of indeterminate age; previous ST segment changes appear less prominent at this time ECHO: Pending Medical Necessity - Tobacco Use Smoking Status: Former smoker Assessment/Plan 1. Acute inferior ST segment elevation [place] The patient presents with signs and symptoms and objective findings compatible with an acute inferior ST segment elevation [place]. He has subsequently undergone emergent/urgent diagnostic cardiac catheterization demonstrating RCA PTCA/stent occlusion/thrombosis and is now status post recurrent RCA PTCA-no stent. He appears to be resting comfortably at the moment in the ICU. At the present time he will continue to be monitored. His laboratory studies and ECGs are being followed. I level is decreasing. He can have a follow-up echocardiogram to assess his left ventricular wall motion and systolic function. He will continue medical therapy. This will include aspirin and antiplatelet therapy. He has been placed on clopidogrel/Plavix. Nitrates can be used cautiously as needed. It would not be unreasonable to reattempt beta-shannon therapy and a low dose to assist with his cardiovascular care. He is on an ASHANTI inhibitor. He is on a lipid-lowering agent. He states he is also been on amlodipine in the past which has been beneficial to him from his cardiovascular standpoint. He will need to follow-up with his primary paper machine supervisor in [place], [place]. He should be considered for recurrent cardiac rehabilitation. 2. CAD status post RCA PTCA/stent He does have a history of previous coronary artery disease and RCA PTCA/stent as noted above. Again he will need to continue risk factor modification and medical management. He will need to continue to follow with his primary paper machine supervisor and be considered for recurrent outpatient cardiac rehabilitation. 3. Hyperlipidemia He will need to continue aggressive risk factor modification and medical management. Comment: The above was discussed and reviewed with the patient. This note was generated with [employer] dictation software. It may contain incorrect words, spelling, and punctuation that were not noted in checking the note before signing.
--- NOTE | 2017-10-09 12:17 | PN.CARD_ITS ---
Subjectve: The patient is awake and alert. He has no new acute complaints this a.m. Objective: Vital Signs Temp Pulse Resp BP Pulse Ox 98 F 78 13 138/97 H 99 10/09/17 12:00 10/09/17 12:00 10/09/17 12:00 10/09/17 12:00 10/09/17 12:00 Oxygen Delivery Method Room Air Weight: 203 lb Body Mass Index (BMI) 28.4 Intake and Output for Last 24 Hours 10/07/17 10/08/17 10/09/17 23:59 23:59 23:59 Intake Total 598 / 598 1209 / 1209 Output Total 675 / 675 1100 / 1100 Balance -77 / -77 109 / 109 General: Awake, Alert, Oriented x 3, Cooperative, No Acute Distress HEENT: Atraumatic, Normocephalic, PERRL, EOMI, Sclera Non Icteric Neck: Supple, Good ROM, No JVD Lungs: Clear to auscultation Cardiovascular: Regular Rhythm, Normal S1, Normal S2 Vascular: No Carotid Bruits Abdomen: Bowel Sounds Present, Soft, Non Tender Extremities: No Cyanosis, No Clubbing, No edema Neurological: No Focal Motor or Sensory Deficit Psych/Mental Status: Appropriate, Normal Affect 10/08/17 19:35: PT 13.4, INR 1.0, APTT 45.7 H 10/08/17 19:35: Sodium 138, Potassium 4.0, Chloride 107, Carbon Dioxide 25.0, Anion Gap 6, BUN 20 H, Creatinine 1.15, Est GFR (MDRD) Af Amer 84, Est GFR (MDRD ) Non-Af 69, BUN/Creatinine Ratio 17.4, Glucose 97, Calcium 8.1 L 10/08/17 19:35: WBC 12.3 H, RBC 3.98 L, Hgb 12.4 L, Hct 37.2 L, MCV 93.5, MCH 31.2, MCHC 33.3, RDW 14.6, RDW Differential 50.1 H, Plt Count 278, MPV 9.6 10/09/17 05:10: WBC 9.8, RBC 3.95 L, Hgb 12.6 L, Hct 37.6 L, MCV 95.2 H, MCH 31.9, MCHC 33.5, RDW 14.7 H, RDW Differential 50.2 H, Plt Count 293, MPV 9.6, Immature Gran % (Auto) 0.100, Neut % (Auto) 64.6, Lymph % (Auto) 20.1, Brantley % ( Auto) 10.5 H, Eos % (Auto) 4.4, Baso % (Auto) 0.3, Absolute Neuts (auto) 6.3, Total Counted Not Reportable 10/09/17 05:10: Sodium 143, Potassium 4.2, Chloride 111 H, Carbon Dioxide 26.0, Anion Gap 6, BUN 15, Creatinine 0.96, Est GFR (MDRD) Af Amer 103, Est GFR (MDRD ) Non-Af 85, BUN/Creatinine Ratio 15.6, Glucose 98, Calcium 8.0 L, Troponin I 2.890 H*, Triglycerides 54, Cholesterol 113, LDL Cholesterol 58, VLDL Cholesterol 11, HDL Cholesterol 44 10/09/17 09:45: Troponin I 2.650 H* Rhythm: Sinus rhythm/sinus bradycardia EKG: Sinus rhythm; inferior DC of indeterminate age; previous ST segment changes appear less prominent at this time ECHO: Pending Medical Necessity - Tobacco Use Smoking Status: Former smoker Assessment/Plan 1. Acute inferior ST segment elevation [place] The patient presents with signs and symptoms and objective findings compatible with an acute inferior ST segment elevation [place]. He has subsequently undergone emergent/urgent diagnostic cardiac catheterization demonstrating RCA PTCA/stent occlusion/thrombosis and is now status post recurrent RCA PTCA-no stent. He appears to be resting comfortably at the moment in the ICU. At the present time he will continue to be monitored. His laboratory studies and ECGs are being followed. I level is decreasing. He can have a follow-up echocardiogram to assess his left ventricular wall motion and systolic function. He will continue medical therapy. This will include aspirin and antiplatelet therapy. He has been placed on clopidogrel/Plavix. Nitrates can be used cautiously as needed. It would not be unreasonable to reattempt beta-shannon therapy and a low dose to assist with his cardiovascular care. He is on an ASHANTI inhibitor. He is on a lipid-lowering agent. He states he is also been on amlodipine in the past which has been beneficial to him from his cardiovascular standpoint. He will need to follow-up with his primary code and test clerk in [place], [place]. He should be considered for recurrent cardiac rehabilitation. 2. CAD status post RCA PTCA/stent He does have a history of previous coronary artery disease and RCA PTCA/stent as noted above. Again he will need to continue risk factor modification and medical management. He will need to continue to follow with his primary code and test clerk and be considered for recurrent outpatient cardiac rehabilitation. 3. Hyperlipidemia He will need to continue aggressive risk factor modification and medical management. Comment: The above was discussed and reviewed with the patient. This note was generated with [employer] dictation software. It may contain incorrect words, spelling, and punctuation that were not noted in checking the note before signing.
[2017-10-09] MEDS: 0.9% NaCl Peripheral Flush Adult/Peds IV (12:18)
[2017-10-09] MEDS: Pantoprazole Sodium 20 MG Tablet PO (12:18)
[2017-10-09] MEDS: amLODIPine 2.5 MG Tablet PO (13:30)
[2017-10-09] MEDS: Clopidogrel Bisulfate 75 MG Tablet PO (17:23)
[2017-10-09] MEDS: Zolpidem Tartrate 5 MG Tablet PO (21:22)
[2017-10-09] MEDS: Atorvastatin Calcium 80 MG Tablet PO (21:22)
[2017-10-10] VITALS (9 sets, daily range): BP systolic 101–131; BP diastolic 69–92; PULSE 57–86; RESP 15–17; TEMP 36.3–36.4; O2SAT 95–98
[2017-10-10 04:24] LABS: Hemoglobin 13.2 g/dl (13.0-16.5); Mean Corp Hgb Conc 33.8 g/gl (32-36); Mean Corpuscular Hgb 32.1 pg (27.0-32.0); Mean Corpuscular Volume 94.9 fL (80-94); Mean Platelet Vol. 9.4 fl (6.2-12.0); Platelet Count 273 K/mm3 (150-450); RBC Distribution Width CV 14.7 % (11.6-14.6); RBC Distribution Width SD 49.4 fl (35.1-43.9); Red Blood Count 4.11 M/mm3 (4.6-6.2); White Blood Count 9.5 K/mm3 (4.4-11.0)
[2017-10-10 04:26] LABS: Scan Indicated on CBC? Y/N NO
--- NOTE | 2017-10-10 05:55 | EKG12_ITS ---
Test Reason : MORNING EKG Blood Pressure : / mmHG Vent. Rate : 051 BPM Atrial Rate : 051 BPM P-R Int : 168 ms QRS Dur : 106 ms QT Int : 432 ms P-R-T Axes : 052 038 -05 degrees QTc Int : 398 ms Sinus bradycardia Inferior infarct , age undetermined Abnormal ECG When compared with ECG of 09-OCT-2017 05:07, MANUAL COMPARISON REQUIRED, DATA IS UNCONFIRMED Confirmed by CHANA LACKEY, RICHIE ([id number]), editorial project manager TONIE CUADRA ([id number]) on 10/12/2017 10:43:07 AM Referred By: Keshav Membreno Confirmed By:RICHIE ZAYAS MD
[2017-10-10] MEDS: Pantoprazole Sodium 20 MG Tablet PO (09:55)
[2017-10-10] MEDS: Clopidogrel Bisulfate 75 MG Tablet PO (09:55)
[2017-10-10] MEDS: 0.9% NaCl Peripheral Flush Adult/Peds IV (09:55)
[2017-10-10] MEDS: Lisinopril 5 MG Tablet PO (09:55)
[2017-10-10] MEDS: Metoprolol Tartrate 25 MG Tablet 12.5 MG PO (09:56)
[2017-10-10] MEDS: amLODIPine 2.5 MG Tablet PO (09:56)
[2017-10-10] MEDS: Aspirin 81 MG TAB.CHEW PO (09:56)
--- NOTE | 2017-10-10 10:40 | PN.CARD_ITS ---
Subjectve: The patient is awake and alert. He denies any ongoing chest discomfort or difficulty breathing. He has been up and out of bed without difficulty or symptoms. Objective: Vital Signs Temp Pulse Resp BP Pulse Ox 97.5 F L 80 17 131/92 H 98 10/10/17 09:51 10/10/17 09:56 10/10/17 09:51 10/10/17 09:51 10/10/17 09:51 Oxygen Delivery Method Room Air Weight: 199 lb 4.766 oz Body Mass Index (BMI) 28.4 Intake and Output for Last 24 Hours 10/08/17 10/09/17 10/10/17 23:59 23:59 23:59 Intake Total 598 / 598 2580 / 2580 150 / 150 Output Total 675 / 675 4150 / 4150 1000 / 1000 Balance -77 / -77 -1570 / -1570 -850 / -850 General: Awake, Alert, Oriented x 3, Cooperative, No Acute Distress HEENT: Atraumatic, Normocephalic, PERRL, EOMI, Sclera Non Icteric Oral: Moist Mucosa Neck: Supple, Good ROM, No JVD Lungs: Clear to auscultation Cardiovascular: Regular Rhythm, Premature Ectopic Beats, Normal S1, Normal S2 Vascular: No Carotid Bruits, Normal Femoral Pulses Abdomen: Bowel Sounds Present, Soft, Non Tender Extremities: No Cyanosis, No Clubbing, No edema Neurological: No Focal Motor or Sensory Deficit Psych/Mental Status: Appropriate, Normal Affect 10/10/17 04:15: WBC 9.5, RBC 4.11 L, Hgb 13.2, Hct 39.0 L, MCV 94.9 H, MCH 32.1 H, MCHC 33.8, RDW 14.7 H, RDW Differential 49.4 H, Plt Count 273, MPV 9.4 Rhythm: Sinus rhythm; rare PVC EKG: Sinus rhythm; inferior SC of indeterminate age Medical Necessity - Tobacco Use Smoking Status: Former smoker Assessment/Plan 1. Acute inferior ST segment elevation [place] The patient presents with signs and symptoms and objective findings compatible with an acute inferior ST segment elevation [place]. He has subsequently undergone emergent/urgent diagnostic cardiac catheterization demonstrating RCA PTCA/stent occlusion/thrombosis and is now status post recurrent RCA PTCA-no stent. He will continue medical therapy. This will include aspirin and antiplatelet therapy. He has been placed on clopidogrel/Plavix. Nitrates can be used cautiously as needed. It would not be unreasonable to reattempt beta-shannon therapy and a low dose to assist with his cardiovascular care. He is on an ASHANTI inhibitor. He is on a lipid-lowering agent. He states he is also been on amlodipine in the past which has been beneficial to him from his cardiovascular standpoint. He will need to follow-up with his primary application support engineer in [place], [place]. He should be considered for recurrent cardiac rehabilitation. 2. CAD status post RCA PTCA/stent He does have a history of previous coronary artery disease and RCA PTCA/stent as noted above. Again he will need to continue risk factor modification and medical management. He will need to continue to follow with his primary application support engineer and be considered for recurrent outpatient cardiac rehabilitation. 3. Hyperlipidemia He will need to continue aggressive risk factor modification and medical management. Overall, at the present time, the patient will continue medical management. He will continue outpatient cardiovascular follow-up with his primary application support engineer in [place], [place]. Comment: The above was discussed and reviewed with the patient. This note was generated with [employer] dictation software. It may contain incorrect words, spelling, and punctuation that were not noted in checking the note before signing.
--- NOTE | 2017-10-10 14:05 | PCM.DC ---
- Discharge Diagnoses Current Active Problems: Current Active and Chronic Problems STEMI (ST elevation myocardial infarction) (Acute) CAD (coronary artery disease) (Chronic) S/P PTCA (percutaneous transluminal coronary angioplasty) (Chronic) HLD (hyperlipidemia) (Chronic) STEMI (ST elevation myocardial infarction) (Acute) You will use the following diet at home:: Regular Your food should be the consistency of: Regular Your liquids should be the consistency of: Regular/Thin Discharge Activity: Return to Normal Activity Weight Bearing Status: Full weight bearing Allergies/Adverse Reactions: Allergies metoprolol Allergy (Verified 10/08/17 21:44) Other ticagrelor [From Brilinta] Allergy (Verified 10/08/17 17:26) Anaphylaxis Medications to take at Discharge Lisinopril [Zestril] 5 mg PO DAILY 12/26/15 Aspirin [Aspirin, Baby] 81 mg PO DAILY@0800 04/23/16 Amlodipine 2.5 mg 10/08/17 Omeprazole [Prilosec] 20 mg PO DAILY 10/09/17 Amlodipine [Norvasc] 2.5 mg PO DAILY tablet 10/10/17 Aspirin [Aspirin, Baby] 81 mg PO DAILY@0800 tab.chew 10/10/17 Atorvastatin Calcium [Lipitor] 80 mg PO QHS #30 tab 10/10/17 Clopidogrel Bisulfate [Plavix] 75 mg PO DAILY #30 tab 10/10/17 Metoprolol Tartrate [Lopressor (beta shannon)] 12.5 mg PO BID #30 tab 10/10/17 The following prescriptions were given: Atorvastatin Calcium [Lipitor] 80 mg PO QHS #30 tab Clopidogrel Bisulfate [Plavix] 75 mg PO DAILY #30 tab Metoprolol Tartrate [Lopressor (beta shannon)] 12.5 mg PO BID #30 tab Primary Care Physician: Link Doctor,Out of [NON-STAFF] - Please follow up with your Primary Care Physician in: in 2-3 weeeks
--- NOTE | 2017-10-14 16:22 | PCM.DC.SUM ---
Discharge Date and Diagnosis Date of Admission: 10/08/17 Date of Discharge: 10/10/17 - Primary Discharge Diagnosis #[address] segment elevation ID #2 occlusive coronary artery disease #3 hypertension #4 hyperlipidemia - Secondary Discharge Diagnosis Chronic Problems CAD (coronary artery disease) (Chronic) S/P PTCA (percutaneous transluminal coronary angioplasty) (Chronic) HLD (hyperlipidemia) (Chronic) Hospital Course and Treatment Operations: None Procedures: 2-D Echocardiogram, Cardiac catheterization, - - Coronary artery PTCA Summary of Care Provided: The patient is a 57 year old M who was seen in the emergency room at [facility] with complaints of sudden onset of severe chest pain, he was noted to have a ST elevation ID in the inferior wall region and immediately taken to the catheterization lab at [facility]. Patient had in-stent thrombosis of the RCA and he underwent percutaneous coronary angioplasty. Patient was admitted to the ICU, he had no complications from his procedure and there were no further medical problems encountered with the patient. On 10/10/17, patient was seen and examined and felt to be in stable condition for discharge home. Discharge Activity: Return to Normal Activity Weight Bearing Status: Full weight bearing Home Medications: Medications to take at Discharge Lisinopril [Zestril] 5 mg PO DAILY 12/26/15 Aspirin [Aspirin, Baby] 81 mg PO DAILY@0800 04/23/16 Amlodipine 2.5 mg 10/08/17 Omeprazole [Prilosec] 20 mg PO DAILY 10/09/17 Amlodipine [Norvasc] 2.5 mg PO DAILY tablet 10/10/17 Aspirin [Aspirin, Baby] 81 mg PO DAILY@0800 tab.chew 10/10/17 Atorvastatin Calcium [Lipitor] 80 mg PO QHS #30 tab 10/10/17 Clopidogrel Bisulfate [Plavix] 75 mg PO DAILY #30 tab 10/10/17 Metoprolol Tartrate [Lopressor (beta hung)] 12.5 mg PO BID #30 tab 10/10/17 Following Prescrptions Were Given to Patient: Atorvastatin Calcium [Lipitor] 80 mg PO QHS #30 tab Clopidogrel Bisulfate [Plavix] 75 mg PO DAILY #30 tab Metoprolol Tartrate [Lopressor (beta hung)] 12.5 mg PO BID #30 tab Primary Care Physician: Link Garcia,Out of [NON-STAFF] - Please follow up with your Primary Care Physician in: in 2-3 weeeks Medical Necessity - Tobacco Use Smoking Status: Former smoker Meaningful Use Info Meaningful Use Diagnoses (Choose all that apply): AMI - AMI Aspirin given w/in 24hrs of arrival?: Yes ASA at discharge?: Yes Statins at discharge?: Yes Tyree/ARB at discharge?: Yes Beta Hung at discharge?: Yes Done w/ Acute ID measure.: Yes Code Visit Inpatient E&M: 68499 Disch Hosp
--- NOTE | 2017-10-14 16:35 | DS.PCM_ITS ---
Discharge Date and Diagnosis Date of Admission: 10/08/17 Date of Discharge: 10/10/17 - Primary Discharge Diagnosis #[address] segment elevation [place] #2 occlusive coronary artery disease #3 hypertension #4 hyperlipidemia - Secondary Discharge Diagnosis Chronic Problems CAD (coronary artery disease) (Chronic) S/P PTCA (percutaneous transluminal coronary angioplasty) (Chronic) HLD (hyperlipidemia) (Chronic) Hospital Course and Treatment Operations: None Procedures: 2-D Echocardiogram, Cardiac catheterization, - - Coronary artery PTCA Summary of Care Provided: The patient is a 57 year old M who was seen in the emergency room at [facility] with complaints of sudden onset of severe chest pain, he was noted to have a ST elevation [place] in the inferior wall region and immediately taken to the catheterization lab at [facility]. Patient had in- stent thrombosis of the RCA and he underwent percutaneous coronary angioplasty. Patient was admitted to the ICU, he had no complications from his procedure and there were no further medical problems encountered with the patient. On , patient was seen and examined and felt to be in stable condition for discharge home. Discharge Activity: Return to Normal Activity Weight Bearing Status: Full weight bearing Home Medications: Medications to take at Discharge Lisinopril [Zestril] 5 mg PO DAILY 12/26/15 Aspirin [Aspirin, Baby] 81 mg PO DAILY@0800 04/23/16 Amlodipine 2.5 mg 10/08/17 Omeprazole [Prilosec] 20 mg PO DAILY 10/09/17 Amlodipine [Norvasc] 2.5 mg PO DAILY tablet 10/10/17 Aspirin [Aspirin, Baby] 81 mg PO DAILY@0800 tab.chew 10/10/17 Atorvastatin Calcium [Lipitor] 80 mg PO QHS #30 tab 10/10/17 Clopidogrel Bisulfate [Plavix] 75 mg PO DAILY #30 tab 10/10/17 Metoprolol Tartrate [Lopressor (beta hung)] 12.5 mg PO BID #30 tab 10/10/17 Following Prescrptions Were Given to Patient: Atorvastatin Calcium [Lipitor] 80 mg PO QHS #30 tab Clopidogrel Bisulfate [Plavix] 75 mg PO DAILY #30 tab Metoprolol Tartrate [Lopressor (beta hung)] 12.5 mg PO BID #30 tab Primary Care Physician: Link Garcia,Out of [NON-STAFF] - Please follow up with your Primary Care Physician in: in 2-3 weeeks Medical Necessity - Tobacco Use Smoking Status: Former smoker Meaningful Use Info Meaningful Use Diagnoses (Choose all that apply): AMI - AMI Aspirin given w/in 24hrs of arrival?: Yes ASA at discharge?: Yes Statins at discharge?: Yes Tyree/ARB at discharge?: Yes Beta Hung at discharge?: Yes Done w/ Acute [place] measure.: Yes Code Visit Inpatient E&M: 82415 Disch Hosp
== END 2017-10-10 15:30 | disposition home or self-care (01) | DRG 112 ==
LOC: ED 17:21 → ICU 17:43
PROVIDERS: Internal Medicine Cardiovascular Disease; Admitting Provider Internal Medicine; Emergency Provider Emergency Medicine; Visit Provider Internal Medicine
DX: I21.19 ST elevation (STEMI) myocardial infarction involving other coronary artery of inferior wall (principal); T82.855A Stenosis of coronary artery stent, initial encounter; I25.110 Atherosclerotic heart disease of native coronary artery with unstable angina pectoris; E78.5 Hyperlipidemia, unspecified; I10 Essential (primary) hypertension
CPT/HCPCS: 71045; 80048; 80061; 82550; 84484; 85025; 85027; 85347; 85610; 85730; 87641; 92941; 92978; 93005; 93306; 93458; 99152; J7030; A4216; C1725; C1753; C1769; C1887; J1327; J2405